=== PATIENT | male | born 1995 | race Caucasian/White ===

== ENCOUNTER 2020-02-15 07:08 | Emergency (ER) | payer SELFPAY ==
[~2020-02-15] VITALS: Ht 170.2 cm; Wt 81.6 kg
--- NOTE | 2020-02-15 07:08 | NUR ---
PT BIB [facility], PREBOOK. TAKEN TO CHAIR
[2020-02-15 07:12] VITALS: BP 131/81
--- NOTE | 2020-02-15 07:21 | NUR ---
BIB [facility] FOR PREBOOK S/P TC. DENIES PAIN OR LOC. MHX: DENIES NKA D
--- NOTE | 2020-02-15 07:42 | NUR ---
PATIENT EXAMINED BY DR VALERIO. PATIENT MEDICALLY CLEARED AND RELEASED IN CUSTODY IN STABLE CONDITION. ORIGINAL PRE-BOOK FORM GIVEN TO OFFICER DIONNE [id number].
[2020-02-15 07:44] VITALS: BP 131/81
== END 2020-02-15 07:42 ==
LOC: MED 07:08
DX: Z48.00 Encounter for change or removal of nonsurgical wound dressing (principal); Z02.89 Encounter for other administrative examinations
CPT/HCPCS: 99283